=== PATIENT | male | born 1950 | race Caucasian/White ===

== ENCOUNTER → 2016-09-12 | Outpatient (CLI) | payer OTHER | LOC: FIMAGING 08-31 08:52 | PROVIDERS: ATTEND Obstetrics & Gynecology | DX: M75.112 Incomplete rotator cuff tear or rupture of left shoulder, not specified as traumatic (principal); M75.52 Bursitis of left shoulder; M75.22 Bicipital tendinitis, left shoulder; M25.512 Pain in left shoulder; M75.82 Other shoulder lesions, left shoulder; M25.711 Osteophyte, right shoulder; M19.012 Primary osteoarthritis, left shoulder; M54.12 Radiculopathy, cervical region; M50.30 Other cervical disc degeneration, unspecified cervical region ==

== ENCOUNTER → 2017-02-25 | Outpatient (CLI) | payer OTHER | LOC: BHFA 08:30 | PROVIDERS: ATTEND Internal Medicine Cardiovascular Disease | DX: I25.10 Atherosclerotic heart disease of native coronary artery without angina pectoris (principal); I44.7 Left bundle-branch block, unspecified | CPT/HCPCS: 78452; 93017; A9500; J2785 ==